=== PATIENT | male | born 1955 | race Caucasian/White ===

== ENCOUNTER 2020-12-16 16:53 | Emergency (ER) | payer OTHER ==
[~2020-12-16] VITALS: Ht 162.6 cm; Wt 76.0 kg
--- NOTE | 2020-12-16 18:41 | NUR ---
SALESPERSON FASHION ACCESSORIES: PT TO ROOM FROM PAT [facility]
[2020-12-16] MEDS ORDERED: LIDOCAINE-MPF 1%, 5ML ONE (19:12)
[2020-12-16 19:22] VITALS: BP 135/80
[2020-12-16] MEDS ORDERED: LIDOCAINE-MPF 1%, 5ML INFIL ONE (19:30)
[2020-12-16] MEDS ORDERED: DIPH,PERTUSS(ACELL),TET VAC/PF 0.5 ML IM-VACC ONE (19:30)
== END 2020-12-16 20:59 | disposition home or self-care (01) ==
LOC: ED 20:00
DX: S61.215A Laceration without foreign body of left ring finger without damage to nail, initial encounter (principal); X58.XXXA Exposure to other specified factors, initial encounter; Y93.89 Activity, other specified; Y92.009 Unspecified place in unspecified non-institutional (private) residence as the place of occurrence of the external cause; Y99.8 Other external cause status
CPT/HCPCS: 12001; 99283